=== PATIENT | female | born 1990 | race Caucasian/White ===

== ENCOUNTER 2017-04-15 11:58 | Emergency (ER) | payer OTHER ==
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
[~2017-04-15 11:58] MED LIST: BACTRIM DS TABL1 TA1; BACTRIM DS TABL1 TA1 PO; BENZONATATE PO; FLEXERIL10 M1 PO; FLONASE16 GM; IBUPROFEN800 MG PO; MACROBID100 MG PO; NAPROSYN500 MG PO; NO MEDICATIONS; PRINCIPEN500 M1 PO; PYRIDIUM PO; RYBIX ODT50 MG PO; TESSALON200 MG PO; ZOFRAN PO
== END 2017-04-15 15:06 | disposition home or self-care (01) ==
LOC: SED 11:58
DX: S13.4XXA Sprain of ligaments of cervical spine, initial encounter (principal); S20.219A Contusion of unspecified front wall of thorax, initial encounter; S00.83XA Contusion of other part of head, initial encounter; F17.210 Nicotine dependence, cigarettes, uncomplicated; X58.XXXA Exposure to other specified factors, initial encounter; Y92.410 Unspecified street and highway as the place of occurrence of the external cause
CPT/HCPCS: 70450; 71250; 72125; 73030; 99284

== ENCOUNTER 2017-06-09 22:44 | Emergency (ER) | payer OTHER ==
[~2017-06-09] VITALS: Ht 165.1 cm; Wt 54.4 kg
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
== END 2017-06-10 00:55 | disposition home or self-care (01) ==
LOC: CFTX 22:44 → CED 22:44 → CFTX 23:32
DX: S60.221A Contusion of right hand, initial encounter (principal); F17.210 Nicotine dependence, cigarettes, uncomplicated; Z88.5 Allergy status to narcotic agent; Z91.041 Radiographic dye allergy status; W22.8XXA Striking against or struck by other objects, initial encounter; Y92.009 Unspecified place in unspecified non-institutional (private) residence as the place of occurrence of the external cause
CPT/HCPCS: 73130; 99283